=== PATIENT | female | born 1970 | race Caucasian/White ===

== ENCOUNTER 2023-10-22 14:06 | Emergency (ER) | payer OTHER, SELFPAY ==
[2023-10-22 14:11] VITALS: BP 168/102
--- NOTE | 2023-10-22 15:07 | ED.GENMED ---
History of Present Illness
General
Chief Complaint: DVT/Possible Blood Clot
Source: patient
Exam Limitations: none
Time Seen by Provider: 10/22/23 14:54
Travel History
Have you had any contact with someone who has COVID-19?: No
Do you have any symptoms of coronavirus? Fever > 100 degrees, chills, cough, shortness of breath, sore throat, loss of taste or smell, muscle aches, or headache?: No
History of Present Illness
History of Present Illness:
Patient noted right calf pain swelling and warmth starting yesterday. No inactivity prolonged tripped her risk factor for DVT. No chest pain or shortness of breath. No fever. Pain does shoot down to the foot. Some warmth noted by the patient
Past History
Past History
ED Past Medical History: NIDDM
ED Past Surgical History: Other (Hernia repair)
Review of Systems
Review of Systems
All Other Systems: Not applicable
Constitutional: Denies fever
Respiratory: Reports no symptoms
Cardiac: Reports no symptoms
Phy Exam
Physical Exam
Physical Exam:
GENERAL: Alert and oriented in no apparent distress
CARDIAC: Regular rate and rhythm without any obvious murmurs.
LUNGS: Clear breath sounds,normal
NEUROLOGICAL: Alert and oriented , grossly non-focal
SKIN: Warm and dry, minimal warmth and mild minimal erythema to the right medial lower calf. No cord. No open wound. No drainage.
MUSCULOSKELETAL: No edema,no deformity.Good color. No pain with passive flexion extension of the calf. No cords. No deep muscular tenderness. Knee is normal.
PSYCH: Normal and appropriate interaction.
Course
Orders/Labs/Results
Orders:
Orders
10/22/23
Electrocardiogram (*1) Stat
Other Reason for Exam: CP
Comment: DONE
10/22/23 14:11
US Periph Venous LOWER Ext RT Urgent
Comment:
Reason For Exam: right calf swelling with pain
10/22/23 16:26
IV Insert/Care/Rem.- Treatment PRN
0.9% Sodium Chloride 500 ml [Nss] 500 ml IV BOLUS
10/22/23 16:27
CT Chest Pe Study Urgent
Comment:
Reason For Exam: dvt. r/o pe
Test Result ONCE
10/22/23 16:55
Basic Metabolic Panel Urgent
Complete Blood Count/With Diff Urgent
HCG, Serum Qualitative Screen Urgent
10/22/23 18:17
Rivaroxaban [Xarelto] 15 mg PO NOW STA
Abnormal Lab Results
10/22/23
16:55
WBC 12.4 H 10^3/uL
(4.8-10.8)
Hgb 10.0 L g/dL
(12.0-16.0)
Hct 30.5 L %
(37.0-47.0)
MCV 67.8 L fL
(81.0-99.0)
MCH 22.2 L pg
(27.0-31.0)
MCHC 32.8 L g/dL
(33.0-37.0)
RDW 16.3 H %
(11.5-14.5)
MPV 10.6 H fL
(7.4-10.4)
Absolute Neuts (auto) 9.2 H 10^3/uL
(1.4-6.5)
Lymphocytes % 18.8 L %
(20.5-51.1)
Glucose 118 H mg/dl
(70-99)
10/22/23 16:55
10/22/23 16:55
Vital Signs
Initial and Last Documented VS:
Initial Vital Signs
Temp Pulse Resp Pulse Ox
98.0 F 94 16 96
10/22/23 14:08 10/22/23 14:08 10/22/23 14:08 10/22/23 14:08
Last Documented Vital Signs
Temp Pulse Resp BP Pulse Ox
97.8 F 86 19 142/79 97
10/22/23 19:09 10/22/23 18:06 10/22/23 17:30 10/22/23 18:06 10/22/23 18:06
*Critical Care Note
Total Time (30-74mins, 75-104mins- exclusive of procedures): Not Applicable
ED Attending Note
-
Portions of this chart may have been created with voice recognition software.� Occasional wrong word or��sound alike� substitutions may have occurred due to the inherent limitations of voice recognition software.
Discharge Plan
Departure
Patient Disposition: Home (Routine Discharge)
Date of Disposition: 10/22/23
Time of Disposition: 18:18
Patient with high blood pressure during this ER visit?: Yes
Discharge Problem:
DVT right leg, Anemia
Instructions: Deep Vein Thrombosis (Blood Clots in the Legs) (DC), BLOOD PRESSURE
Prescriptions:
New
Xarelto 15 mg tablet
15 mg PO BID 21 Days Qty: 42 0RF
No Action
levothyroxine 25 mcg Tablet
25 mcg PO DAILY@0600
metformin 750 mg Tablet Extended Release 24 Hr
750 mg PO BID
aspirin 81 mg Tablet,Delayed Release (Dr/Ec)
324 mg PO ONCE PRN (Reason: blood clot prevention)
Patient Comments:
10/22/2023, pt. took 4 81 mg tablets today.
acetaminophen [Tylenol Extra Strength] 500 mg Tablet
1,000 mg PO DAILYPRN PRN (Reason: mild pain)
omeprazole 20 mg Tablet,Delayed Release (Dr/Ec)
20 mg PO DAILY
Patient Comments:
10/22/2023, OTC Omeprazole.
Theragen Tablet
1 tab PO DAILY
Referrals:
Cutting,Lian, [employer] [Family Provider] - Follow up in 2-3 days
Lew Hawkins MD [Active] - Next open appointment
Stand Alone Forms: Return to Work
Activity Restrictions/Additional Instructions:
After the 21 days of the twice a day dosing, you will need to be changed to once a day dosing. This will be a 20 mg tablet
Follow-up closely with your primary physician and hematology
Interventions
Interventions:
*Risk Screen - Suicide Last Done: 10/22/23 16:47
*General Assessment Last Done: 10/22/23 16:47
*Neglect/Abuse Screening Last Done: 10/22/23 16:47
ED- Fall Risk Assessment Last Done: 10/22/23 16:47
*ED COVID-19 Vaccine History Last Done: 10/22/23 14:08
*Nursing Disposition Last Done: 10/22/23 19:09
ED- Cardiac Assessment Last Done: 10/22/23 16:47
ED- Pulmonary Assessment Last Done: 10/22/23 16:47
ED-Peripheral Vascular Assessment Last Done: 10/22/23 16:47
ED-Skin Assessment Last Done: 10/22/23 16:47
Discharge Date and Time
Discharge Date/Time: 10/22/23 19:10
[2023-10-22 16:45] VITALS: BP 150/83
[2023-10-22 16:47] VITALS: BMI 42.9
[2023-10-22] MEDS: NSS 500 IV (16:54)
[2023-10-22 17:02] LABS: % Basophils 0.4 % (0-2); % Immature Granulocytes 0.2 % (0-0.5); % Lymphocytes 18.8 % (20.5-51.1); % Monocytes 4.3 % (1.7-9.3); % Neutrophils 74.3 % (42.2-75.2); Absolute Basophils 0.1 10^3/uL (0-0.2); Absolute Eosinophils 0.3 10^3/uL (0-0.7); Absolute Lymphocytes 2.3 10^3/uL (1.2-3.4); Absolute Monocytes 0.5 10^3/uL (0.1-0.6); Absolute Neutrophils 9.2 10^3/uL (1.4-6.5); Hematocrit 30.5 % (37.0-47.0); Mean Corp Hgb Conc. 32.8 g/dL (33.0-37.0); Mean Corpuscular Hgb 22.2 pg (27.0-31.0); Mean Corpuscular Volume 67.8 fL (81.0-99.0); Mean Platelet Volume 10.6 fL (7.4-10.4); Nucleated Red Blood Cells % 0 %; Platelet Count 295 10^3/uL (130-400); Red Cell Dist. Width 16.3 % (11.5-14.5); White Blood Cell Count 12.4 10^3/uL (4.8-10.8)
[2023-10-22 17:10] LABS: HCG, Serum Qualitative Screen Negative
[2023-10-22 17:14] LABS: Blood Urea Nitrogen 12 mg/dl (7-17); Calcium 8.9 mg/dl (8.4-10.2); Carbon Dioxide 23 mmol/L (22-30); Chloride 103 mmol/L (98-107); Estimated Creatinine Clearance > 125 ml/min; Glucose 118 mg/dl (70-99); Potassium 3.9 mmol/L (3.5-5.1); Sodium 136 mmol/L (135-145); eGFR > 60.00
[2023-10-22 18:06] VITALS: BP 142/79
[2023-10-22] MEDS: XARELTO 15 MG PO (18:27)
== END 2023-10-22 19:10 | disposition home or self-care (01) ==
LOC: EMR 14:06
PROVIDERS: EMERGENCY PHYSICIAN Emergency Medicine; FAMILY PHYSICIAN Registered Nurse
DX: I82.401 Acute embolism and thrombosis of unspecified deep veins of right lower extremity (principal); E11.9 Type 2 diabetes mellitus without complications
CPT/HCPCS: 99284; 96360; 96361; 71275; 80048; 84703; 85025; 93005; 93971; Q9967